=== PATIENT | male | born 2000 | race Caucasian/White ===

== ENCOUNTER → 2022-05-23 13:22 | Outpatient (BNVA) | payer BC, SELFPAY | PROVIDERS: Family Provider Nurse Practitioner; PCP Nurse Practitioner; Visit Provider Family Medicine | DX: B34.9 Viral infection, unspecified (principal) | CPT/HCPCS: 87635 ==

== ENCOUNTER 2025-01-24 17:47 | Emergency (ER) | payer BC, SELFPAY ==
[2025-01-24 17:52] VITALS: BP 151/80; PULSE 85; RESP 18; TEMP 36.8; O2SAT 97; BMI 33.5
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
[2025-01-24 19:02] VITALS: BP 140/67; PULSE 71; O2SAT 95
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
[2025-01-24 19:21] VITALS: BP 141/76; PULSE 71; O2SAT 97
[2025-01-24 19:22] VITALS: RESP 18; O2SAT 97
[2025-01-24] MEDS: oxyCODONE-APAP 5-325 mg Tablet 2 TAB PO (19:22)
== END 2025-01-24 19:23 | disposition home or self-care (01) ==
PROVIDERS: Emergency Provider Emergency Medicine; Family Provider Nurse Practitioner; PCP Nurse Practitioner
DX: S40.011A Contusion of right shoulder, initial encounter (principal); V89.2XXA Person injured in unspecified motor-vehicle accident, traffic, initial encounter
CPT/HCPCS: 71045; 73030; 99284